=== PATIENT | female | born 1975 | race Caucasian/White ===

== ENCOUNTER 2024-02-24 13:15 | Outpatient (AMB) | payer OTHER, SELFPAY ==
--- NOTE | 2024-02-24 13:28 | A.OFFVIS_ITS ---
VS Expanded 02/24/24 13:47 BP 115/64 Blood Pressure Location Rt brachial Blood Pressure Position Sitting Pulse 61 Pulse Source Pulse Oximeter Temp 97.9 F Temperature Source Temporal Artery Scan Pulse Oximetry 100 Oxygen Delivery Method Room Air Height 5 ft 2 in Weight 113 lb 3.2 oz BMI 20.7 Body Fat % 32.9 Body Fat Mass 37.2 Fat Free Mass 75.8 Visceral Fat Rating 5.0 Body Water % 47.6 Body Water Mass 53.8 Muscle Mass/Score 71.8 Basal Metabolic Rate/Score 1,064 Intake Visit Reasons: (OV) PO GBY 2010 [facility] Telecommunications Network Planner Required: Yes Telecommunications Network Planner Services: Telecommunications Network Planner Present Telecommunications Network Planner Name: Hospital medical pathology teacher Allergies CT CONTRAST Allergy (Mild, Uncoded 02/24/24 13:37) Hives Medication List - Last Reconciled 02/24/24 by TIFFANY Merino clonazepam 1 mg PO BID PRN etanercept (Enbrel SureClick) mg subcut suvorexant (Belsomra) 15 mg PO BEDTIME PRN topiramate mg PO HPI Comments Details: Patient is a 48-year-old female who presents to the office today for discussion about longstanding chronic abdominal pain. She has a history of gastric bypass done at [facility] in 2010, panniculectomy in 2012, lysis of adhesions in 2014, and multiple admissions through the emergency room since then with recurrent chronic abdominal pain. Ultimately she recently underwent laparoscopy and laparoscopic repair of internal hernia on 01/22/2024. She states that she just wants to understand what is going on. She has not followed up with bariatric surgery and feels as though she has been dismissed from their practice. It is unclear what has transpired. Given the fact that she was recently operated on and while she has no active complaint, she states that she has had intermittent abdominal pain, she was referred back to her surgeon who operated on her approximately a month ago. Additionally, she was given the name of the medical insurance coder for surgery including bariatric surgery to discuss her dissatisfaction with her ongoing chronic abdominal pain that she feels has been not addressed sufficiently and related to her bypass surgery. [facility] Medical History (Updated 02/24/24 @ 14:25 by TIFFANY Merino) Hx of intestinal obstruction Surgical History Hx of breast reduction, elective S/P pneumonectomy Hx of hysterectomy Hx of colonoscopy Hx of bladder endoscopy Hx of gastric bypass Family History (Updated 02/24/24 @ 13:42 by Rozina Iverson CMA) Mother Diabetes Kidney problem Dementia Father Dementia Diabetes Daughter Schizophrenia Son No problems noted. Social History (Updated 02/24/24 @ 13:43 by Rozina Iverson CMA) Alcohol intake: never Patient Tobacco Use Status: Never used Tobacco Physical Exam Vital Signs: Last Vital Signs Temp 97.9 F 02/24/24 13:47 Pulse 61 02/24/24 13:47 BP 115/64 02/24/24 13:47 Pulse Ox 100 02/24/24 13:47 Oxygen Delivery Method Room Air 02/24/24 13:47 BMI result Body Mass Index 20.7 Assessment & Plan Assessment & Plan (1) Chronic abdominal pain: Code(s): R10.9 - Unspecified abdominal pain; G89.29 - Other chronic pain Category: Medical Plan: She was referred back to [facility] for continued and ongoing surgical care in the setting of her recent abdominal surgery performed on 01/22/2024.
[2024-02-24 13:47] VITALS: BP 115/64; PULSE 61; TEMP 36.6; O2SAT 100; BMI 20.7
== END 2024-02-24 14:26 | disposition home or self-care (01) ==
PROVIDERS: PCP Internal Medicine; Visit Provider Physician Assistant Surgical
DX: R10.9 Unspecified abdominal pain (principal); G89.29 Other chronic pain
CPT/HCPCS: 99202

== ENCOUNTER → 2024-02-24 13:15 | Outpatient (BNVA) | payer OTHER, SELFPAY | PROVIDERS: PCP Internal Medicine; Visit Provider Physician Assistant Surgical | DX: R10.9 Unspecified abdominal pain (principal); G89.29 Other chronic pain; Z98.84 Bariatric surgery status | CPT/HCPCS: 99202 ==